=== PATIENT | male | born 1965 | race Caucasian/White ===

== ENCOUNTER 2019-06-05 11:03 | Emergency (ER) | payer OTHER ==
[~2019-06-05] VITALS: Ht 182.9 cm; Wt 88.6 kg
[~2019-06-05 11:03] MED LIST: CELEBREX50 MG PO; LIPITOR80 MG PO
[2019-06-05 11:05] VITALS: TEMP 97.7
[2019-06-05] MEDS ORDERED: BACTRIM DS 8001 TAB PO (13:14)
[2019-06-05 13:32] VITALS: BP 129/83; PULSE 67
== END 2019-06-05 13:35 | disposition home or self-care (01) ==
LOC: COL.ER 11:03
DX: S81.811A Laceration without foreign body, right lower leg, initial encounter (principal); I48.91 Unspecified atrial fibrillation; F17.290 Nicotine dependence, other tobacco product, uncomplicated; Z23 Encounter for immunization; W26.8XXA Contact with other sharp object(s), not elsewhere classified, initial encounter; Y92.59 Other trade areas as the place of occurrence of the external cause